=== PATIENT | male | born 1975 | race Caucasian/White ===

== ENCOUNTER 2021-08-11 15:54 | Emergency (ER) | payer OTHER ==
[2021-08-11 16:28] VITALS: BP 98/59; PULSE 58; RESP 18; TEMP 98.4
--- NOTE | 2021-08-11 17:07 | XR ---
EXAMINATION TYPE: XR finger LT DATE OF EXAM: 08/11/2021 COMPARISON: NONE HISTORY: Injury to left thumb. TECHNIQUE: AP, oblique and lateral views of the left thumb were obtained. FINDINGS: No acute fracture or dislocation. IMPRESSION: No acute fracture or dislocation.
[2021-08-11] MEDS ORDERED: IBUPROFEN 600 MG STARTER PACK 4 TAB BTL PO STA (18:53)
[2021-08-11] MEDS ORDERED: BACITRACIN OINT 1 EACH PACKET TOPICAL ONE (18:53)
[2021-08-11] MEDS ORDERED: ACET/COD 300 MG/30 MG STARTER PACK 6 TAB BTL PO STA (18:53)
--- NOTE | 2021-08-11 18:54 | ED ---
Upper Extremity HPI - General Chief Complaint: Extremity Injury, Upper Stated Complaint: [facility]-L hand injury Time Seen by Provider: 08/11/21 18:23 Source: patient Mode of arrival: ambulatory Limitations: no limitations - History of Present Illness Initial Comments: 46-year-old male patient is presented to the emergency department for evaluation of left thumb pain. Patient states he was at work last evening pulled apart from his press when a metal ring snapped back and hit him in a thumb. Patient states that the pain and swelling has worsened throughout the night and day and he is concerned it may be broken. Denies taking any medication for pain. Denies numbness or tingling to the finger. Denies any other injuries or concerns. - Related Data Previous Rx's Medication Instructions Recorded Acetaminophen-Codeine 300-30mg 1 tab PO Q4H PRN #12 tablet 07/02/15 [Tylenol #3] Ibuprofen [Motrin] 600 mg PO Q6HR PRN #20 tab 07/02/15 Allergies Allergy/AdvReac Type Severity Reaction Status Date / Time No Known Allergies Allergy Verified 08/11/21 16:29 Review of Systems ROS Statement: Those systems with pertinent positive or pertinent negative responses have been documented in the HPI. ROS Other: All systems not noted in ROS Statement are negative. Past Medical History Past Medical History: No Reported History History of Any Multi-Drug Resistant Organisms: None Reported Additional Past Surgical History / Comment(s): Chest wall surgery, bilateral feet, cervical fusion Past Psychological History: No Psychological Hx Reported Smoking Status: Smoker, current status unknown Past Alcohol Use History: Occasional Past Drug Use History: None Reported General Exam Limitations: no limitations General appearance: alert, in no apparent distress, other (This is a well- developed, well-nourished adult male in no acute distress.) Respiratory exam: Present: normal lung sounds bilaterally. Absent: respiratory distress, wheezes, rales, rhonchi, stridor Cardiovascular Exam: Present: regular rate, normal rhythm, normal heart sounds. Absent: systolic murmur, diastolic murmur, rubs, gallop, clicks Extremities exam: Present: full ROM, tenderness (Distal aspect of the left thumb), normal capillary refill, other (There is soft tissue swelling and ecchymosis noted to the distal aspect of the left thumb. There is 25% subungual hematoma. Skin is otherwise pink, warm, dry. Cap refill less than 3 seconds. Radial pulses 2+.). Absent: pedal edema, joint swelling, calf tenderness Neurological exam: Present: alert, oriented X3, CN II-XII intact Psychiatric exam: Present: normal affect, normal mood Skin exam: Present: warm, dry, intact, normal color. Absent: rash Course Vital Signs 08/11/21 16:24 Temperature 98.4 F Pulse Rate 58 L Respiratory 18 Rate Blood Pressure 98/59 O2 Sat by Pulse 97 Oximetry Procedures - Procedures Initial comment: Did perform left thumb nail trephination. There is evidence for 25% subungual hematoma to the proximal aspect of the nail. Given location and patient's level of pain I did perform trephination to relieve pressure. He was cleansed with alcohol prior to procedure. There was bloody output. Bacitracin and and bandage applied. Patient did have improvement of symptoms after the procedure. Medical Decision Making - Medical Decision Making 46-year-old male patient presented to the emergency department for evaluation of left thumb injury at work. Physical examination did reveal soft tissue swelling and ecchymosis noted to the distal aspect of the left thumb. Is also evidence for 25% subungual hematoma was drained. X-ray of the thumb was negati ve. He was educated regarding rest, ice, elevation. Instructed to keep the area clean and dry. He is instructed to follow-up with primary care physician for recheck in 1-2 days. Return parameters were discussed in detail. He verbalizes understanding and agrees with this plan. My attending is Dr. Vickers. - Radiology Data Radiology results: report reviewed, image reviewed X-ray of the left thumb is obtained. Report was reviewed in its entirety. Impression by Dr. Mcdonough shows no acute fracture or dislocation. Disposition Clinical Impression: Contusion of left thumb, Hematoma, subungual, thumb, left Disposition: HOME SELF-CARE Condition: Good Instructions (If sedation given, give patient instructions): Subungual Hematoma (ED), Contusion in Adults (ED) Additional Instructions: Rest, ice, elevate the thumb. Keep thumbnail clean and dry. Follow-up with the primary care physician for recheck in 1-2 days. Return for any new, worsening, or concerning symptoms. Is patient prescribed a controlled substance at d/c from ED?: No Referrals: Lynn Dahl MD [Primary Care Provider] - 1-2 days Time of Disposition: 18:54
== END 2021-08-11 19:30 | disposition home or self-care (01) ==
LOC: EC 15:54
DX: S60.012A Contusion of left thumb without damage to nail, initial encounter (principal); Z87.891 Personal history of nicotine dependence; Z72.89 Other problems related to lifestyle; W22.8XXA Striking against or struck by other objects, initial encounter; Y99.0 Civilian activity done for income or pay
CPT/HCPCS: 99283

== ENCOUNTER → 2021-08-20 | Outpatient (CLI) | payer OTHER ==
--- NOTE | 2021-08-20 11:12 | XR ---
EXAMINATION TYPE: XR finger LT DATE OF EXAM: 08/20/2021 COMPARISON: NONE HISTORY: Pain TECHNIQUE: Three views are submitted. FINDINGS: There is a linear fracture extending from the tuft of the distal phalanx into the body of the phalanx . Soft tissue edema. No metallic foreign body. IMPRESSION: 1. There is a fracture of the papi and body of the distal phalanx first digit with the intimal displ acement.
== END | disposition home or self-care (01) ==
LOC: RADXRMAIN 10:24
PROVIDERS: ATTEND Emergency Medicine
DX: S62.522A Displaced fracture of distal phalanx of left thumb, initial encounter for closed fracture (principal); X58.XXXA Exposure to other specified factors, initial encounter

== ENCOUNTER → 2023-04-03 | Outpatient (CLI) | payer OTHER ==
--- NOTE | 2023-04-13 14:41 | MR ---
EXAMINATION TYPE: MR hand LT wo con DATE OF EXAM: 04/03/2023 COMPARISON: 02/03/2023 HISTORY: 48 year-old male M79.645, Left index finger pain, swelling, limited movement. TECHNIQUE: Multiplanar, multisequence images of the left hand were obtained without IV contrast. FINDINGS: A couple foci of susceptibility artifact measuring 4 to 5 mm along ulnar tip of the third digit as we ll as the radial palmar aspect of the mid second finger. Correlate for punctate retained metal debris /foreign body material. Additional 6 mm similar signal susceptibility artifact along the palmar tip of the index finger. Ther e is a focal well-defined erosion here suggesting sequela of remote injury, possible old healed fract ure deformity. There is a 1.2 x 0.9 cm multilocular ganglion cyst along the palmar aspect of the third and fourth CM C joint with partial intraosseous component. Majo-[id number]-[id number] degenerative change first CMC joint and mild at the first IP joint. Some serpiginous cystic appearing areas along the ulnar aspect of the second digit just proximal to t he PIP joint. This is located in the soft tissues just deep to the skin surface and measures 1.6 x 1. 1 cm. No significant tenosynovial fluid is seen. No acute or healing fracture. IMPRESSION: 1. A few scattered foci of susceptibility artifact measuring 4 to 5 mm likely punctate retained metal debris/foreign body material. For example, involving the ulnar tip of the third finger, radial bermudez r aspect of the mid second finger, and a 6 mm focus at the palmar tip of the index finger. 2. Well-defined bony erosion involving the tuft of the index finger likely sequela of old, healed fra cture. 3. A 1.2 x 0.9 cm multilocular ganglion cyst along the palmar aspect of the third and fourth CMC join ts with partial intraosseous component. 4. Suspect a 1.6 x 1.1 cm subcutaneous hemangioma or focal varicosity along the ulnar aspect of the m id second finger.
== END | disposition home or self-care (01) ==
LOC: RADMRIMAIN 11:09
PROVIDERS: ATTEND Orthopaedic Surgery Hand Surgery
DX: M67.442 Ganglion, left hand (principal); M85.842 Other specified disorders of bone density and structure, left hand

== ENCOUNTER 2023-05-20 13:10 | Day surgery (SDC) | payer OTHER ==
--- NOTE | 2023-05-18 09:45 | P.HPOR ---
History of Present Illness H&P Date: 05/18/23 Subjective: This is a 48 year old male that presents today for follow up evaluation regarding a left index finger injury that occurred on December 13, 2022 when he was dumping trash and twisted the finger. He was seen by a physician in [place] and was sent back to work shortly after. Since then he has had excruciating pain in the index finger and limited mobility and has been instructed to do only right handed work. He was referred to therapy last visit but only had 4 visits and had to stop due to pain. He states his finger is still swollen, stiff, and slightly bruised. Physical Examination: LUE: AIN/PIN/Radial/Ulnar/Median motor intact. Radial/Ulnar/Median SILT. 2+/4 Radial/Ulnar pulses palpated. 5/5 APB, 5/5 FDI. Negative Finkelsteins, negative CMC grind, negative Durkan's compression. PIPJ of index finger swollen with ROM 15-50. Slight bluish hue along dorsal ulnar index finger near proximal phalanx with swelling, patient is tender to palpation over this area of fullness. Negative elsons test. No erythema or warmth present. Imaging: MRI of the left hand demonstrates Some serpiginous cystic appearing areas along the ulnar aspect of the second digit just proximal to the PIP joint. This is located in the soft tissues just deep to the skin surface and measures 1.6 x 1.1 cm. Impression: 1.) Left index finger PIP joint sprain 2.) Left index finger soft tissue mass Plan: Diagnosis and treatment options were discussed with the patient. He has continued pain, swelling and slight discoloration in the finger. We discussed the MRI revealed that there is some type of cystic/soft tissue mass formation present in the area where he is point tender over the dorsal ulnar aspect of the index finger where his swelling is present. Structurally we discussed his finger is stable however due to continued pain and associated point tenderness for 4 months now he would like to have the left index finger soft tissue mass excised. He is scheduled for a left index finger soft tissue mass excision.I anticipate 4 weeks off of work total post operatively. PCP clearance is requested. He may continue to have the same restrictions of 30 hours a week with right handed work only. Risks and benefits of surgery including bleeding, infection, damage to surrounding tissue, need for further surgery, recurrence, residual numbness were discussed and the patient wished to go forward with surgery. CC: Lynn Dahl MD -Ilan Payan DO Orthopedic Hand/Upper Extremity Surgeon Past Medical History Past Medical History: No Reported History History of Any Multi-Drug Resistant Organisms: None Reported Additional Past Surgical History / Comment(s): Chest wall surgery, bilateral feet, cervical fusion Past Psychological History: No Psychological Hx Reported Smoking Status: Smoker, current status unknown Past Alcohol Use History: Occasional Past Drug Use History: None Reported Medications and Allergies Home Medications Medication Instructions Recorded Confirmed Type Acetaminophen-Codeine 300-30mg 1 tab PO Q4H PRN #12 tablet 07/02/15 Rx [Tylenol #3] Ibuprofen [Motrin] 600 mg PO Q6HR PRN #20 tab 07/02/15 Rx Allergies Allergy/AdvReac Type Severity Reaction Status Date / Time No Known Allergies Allergy Verified 08/11/21 16:29 Physical Examination Osteopathic Statement: *. No significant issues noted on an osteopathic structural exam other than those noted in the History and Physical/Consult.
[2023-05-19 09:18] VITALS: BMI 42.9
[~2023-05-20 13:10] MED LIST: DEXAMETHASONE SOD PHOSPHATE 4 MG/ML 1 ML VIAL IV ONE; HYDROmorphone 0.5 MG/0.5 ML SYRINGE IVP PRN; LACTATED RINGERS 1,000 ML IV SCH; LIDOCAINE 1% (10MG/ML) FOR IV START INTRADERMA PRN; MIDAZOLAM 2 MG/2 ML VIAL IV PRN; ONDANSETRON 4 MG/2 ML VIAL IVP ONE; ceFAZolin 3 GM in SODIUM CHLORIDE 0.9% 100 ML IVPB PRN
[2023-05-20] MEDS ORDERED: ONDANSETRON 4 MG/2 ML VIAL ONE (14:02)
[2023-05-20] MEDS ORDERED: MIDAZOLAM 2 MG/2 ML VIAL ONE (14:30)
[2023-05-20] MEDS ORDERED: KETOROLAC 15 MG/ML 1 ML VIAL ONE (14:30)
[2023-05-20] MEDS ORDERED: PROPOFOL 10 MG/ML 20 ML VIAL IV ONE (14:30)
[2023-05-20] MEDS ORDERED: fentaNYL (PF) 50 MCG/ML 2 ML AMP ONE (14:30)
[2023-05-20] MEDS ORDERED: LIDOCAINE 1% INJ 10MG/ML (20 ML MDV) ONE (14:30)
[2023-05-20] MEDS ORDERED: SUCCINYLCHOLINE CHLORIDE 200 MG/10 ML VIAL IV ONE (14:30)
[2023-05-20] MEDS ORDERED: LIDOCAINE 1% INJ 10MG/ML (20 ML MDV) SQ ONE ×2 (14:51)
[2023-05-20] MEDS ORDERED: BUPIVACAINE (PF) 0.5% 30 ML VIAL SQ ONE ×2 (14:51)
[2023-05-20 15:33] VITALS: TEMP 97.6
--- NOTE | 2023-05-20 15:39 | P.OP ---
Date of Procedure: 05/20/23 Preoperative Diagnosis: Left index finger soft tissue mass Postoperative Diagnosis: Left index finger soft tissue mass Procedure(s) Performed: Left index finger soft tissue mass excision, venous malformation. Anesthesia: GETA Surgeon: Ilan Payan It Infrastructure Architect #1: Miguel Chavez Estimated Blood Loss (ml): 10 Pathology: other (Left index finger soft tissue mass) Condition: stable Disposition: PACU Description of Procedure: This is a 48 year old male who presents today for a left index finger soft tissue mass excision. Risks and benefits of surgery were discussed with the patient including bleeding, damage to surrounding tissue, infection, need for further surgery as well as risks of anesthesia including pulmonary embolism and even and the patient wished to proceed with surgical intervention. The patient was seen in the pre-operative area by myself. Consent and H&P were completed and updated. The correct extremity was marked in the pre-operative area by myself and all other questions were answered. Operative Narrative: The patient was brought to the operating room by the department of anesthesia. They remained on the portable stretcher and a rolling hand table was brought to the side of the operative extremity. Pre-operative time out was performed indicating the correct patient, procedure and laterality. All in the room agreed. Pre-operative antibiotics were given prior to skin incision. The patient was then drifted off to sleep by the department of anesthesia. A nonsterile tourniquet was then applied to the operative extremity and the left upper extremity was then prepped and draped in normal sterile fashion. The operative extremity was the exsanguinated with an esmarch bandage and the tourniquet was inflated to 250mmHg. Longitudinal incision was made along the ulnar boarder of the index finger centered over the area of the bluish hue created by the mass with 15 blade scalpel. Blunt dissection was taken down through subcutaneous tissues and the dorsal sensory branch of the ulnar digital nerve was identified and protected. There appeared to be a collection of venous appearing structures originating from the dorsum of the finger and travelling ulnarly, consistent with possible venous malformations. Ends were identified and tourniquet was let down at that time. Ends were cauterized and the mass was excised and sent for pathology. The wound was then closed with 4-0 nylon suture. Digital block was performed with 50:50 mixture of 0.5% bupivicaine and 1% lidocaine, 8cc's total. Soft dressing with adapatic, 4x4s, cast padding and lasha wrap was applied. The finger had immediate perfusion at tourniquet release. The patient was then woken by the department of anesthesia and transferred to PACU in stable condition. Miguel ABREU was present to assist in major portions of the procedure including manipulation of the hand and protection of surrounding neurovascular structures. Ilan Payan D.O. Orthopedic Hand/Upper Extremity Surgeon
[2023-05-20 16:13] VITALS: RESP 18
[2023-05-20 16:32] VITALS: BP 117/68; PULSE 61
== END 2023-05-20 16:48 | disposition home or self-care (01) ==
LOC: OR 13:10
PROVIDERS: ATTEND Orthopaedic Surgery Hand Surgery
DX: M67.442 Ganglion, left hand (principal); F17.200 Nicotine dependence, unspecified, uncomplicated; F10.90 Alcohol use, unspecified, uncomplicated; Z98.890 Other specified postprocedural states; Z79.899 Other long term (current) drug therapy
CPT/HCPCS: 26115; 88305; J2250; J0330; J1100; J2405; J2001; J3010; J1885; J2704; J0665